=== PATIENT | female | born 1965 ===

== ENCOUNTER 2020-09-21 13:27 | Emergency (ER) | payer SELFPAY ==
--- NOTE | 2020-09-21 14:14 | Event Note ---
ED Screening Note Date of service: 09/21/20 Time: 14:13 ED Screening Note: 54-year-old female patient with history of diabetes and hypertension presents emergency department with complaints of right upper quadrant abdominal pain for approximately 3 weeks, worsening today. She has also been out of her insulin for the last few weeks and ran out of her blood pressure medicine last night. No fever. No vomiting or diarrhea. No urinary symptoms. General: Awake, appropriately interactive, no acute distress. Neck: Supple. Full range of motion intact. Cardiovascular: Normal peripheral perfusion. Pulmonary: No respiratory distress. Patient is speaking normally without use of accessory muscles. Abdomen: Right upper quadrant tenderness without focal guarding, rebound, or rigidity. Skin: No apparent rashes or lesions. Neurological: No facial asymmetry. Speech is clear. Follows commands. Patient is alert and oriented. Musculoskeletal: Moves all four extremities spontaneously with normal range of motion. Psych: Cooperative. Appropriate mood and affect. I have greeted and performed a focused rapid initial assessment of this patient. A comprehensive ED assessment and evaluation of the patient, analysis of all test results, and completion of the medical decision-making process will be conducted by additional ED providers. This initial assessment/diagnostic orders/clinical plan/treatment(s) is/are subject to change based on patients health status, clinical progression and re-assessment. Further treatment and workup at subsequent clinical provider's discretion. Patient/guardian urged not to elope from the ED as their condition may be serious if not clinically assessed and managed.
[2020-09-21 14:18] VITALS: BP 143/79
[2020-09-21 14:34] LABS: Basophils # (Auto) 0.1 K/mm3 (0.0-0.1); Basophils % (Auto) 0.9 % (0.0-1.8); Eosinophils # (Auto) 0.3 K/mm3 (0.0-0.4); Eosinophils % (Auto) 3.4 % (0.0-4.3); Hematocrit 38.6 % (30.3-42.9); Hemoglobin 12.8 gm/dl (10.1-14.3); Lymphocytes # (Auto) 2.6 K/mm3 (1.2-5.4); Lymphocytes % (Auto) 26.3 % (13.4-35.0); Mean Corpuscular HGB Conc 33 % (30-34); Mean Corpuscular Volume 85 fl (79-97); Monocytes # (Auto) 0.9 K/mm3 (0.0-0.8); Platelet Count 393 K/mm3 (140-440); Red Blood Count 4.56 M/mm3 (3.65-5.03)
[2020-09-21 14:53] LABS: Alanine Aminotransferase 8 units/L (7-56); Albumin 3.9 g/dL (3.9-5); BUN/Creatinine Ratio 20; Blood Urea Nitrogen 14 mg/dL (7-17); Calcium 9.6 mg/dL (8.4-10.2); Hemolysis Index 3
--- NOTE | 2020-09-21 14:57 | XRay Report ---
CHEST 2 VIEWS INDICATION / CLINICAL INFORMATION: SOB. COMPARISON: None available. FINDINGS: SUPPORT DEVICES: None. HEART / MEDIASTINUM: No significant abnormality. LUNGS / PLEURA: No significant pulmonary or pleural abnormality. No pneumothorax. ADDITIONAL FINDINGS: No significant additional findings. IMPRESSION: 1. No acute findings. Signer Name: Maryan Villanueva MD Signed: 09/21/2020 2:52 PM Workstation Name: [id number]
[2020-09-21 16:21] LABS: Bilirubin,Urine NEG (Negative); Blood,Urine NEG (Negative); Color,Urine Yellow (Yellow); Mucus,Urine FEW /HPF; Protein,Urine <15 mg/dL mg/dL (Negative); Urobilinogen,Urine < 2.0 mg/dL (<2.0)
[2020-09-21] MEDS ORDERED: MORPHINE 4 MG/1 ML INJ IV ONE (16:24)
[2020-09-21] MEDS ORDERED: ONDANSETRON 4 MG/2 ML INJ IV ONE (16:24)
[2020-09-21 16:59] LABS: Blood Urea Nitrogen 13 mg/dL (7-17); Calcium 9.2 mg/dL (8.4-10.2); Hemolysis Index 6
[2020-09-21 17:08] LABS: BUN/Creatinine Ratio 19
--- NOTE | 2020-09-21 17:35 | Emergency Department Report ---
ED Abdominal Pain HPI - General Chief Complaint: Abdominal Pain Stated Complaint: STOMACH PAIN/NO INSULIN/HIGH BP Time Seen by Provider: 09/21/20 16:14 Source: patient Mode of arrival: Ambulatory Limitations: No Limitations - History of Present Illness Initial Comments: This is a 54-year-old female nontoxic, well nourished in appearance, no acute signs of distress presents to the ED with c/o of right upper abdominal pain 3 weeks. Stated has radiation to right flank. Patient denies any n/v. Patient describes abdominal pain as cramping and aching with level of 8/10. Patient denies chest pain, short of breath, fever, hemoptysis, blood in stool, chills, headache, stiff neck, numbness or tingling. Patient denies any diarrhea or constipation. Denies any blood in stool. Patient denies any recent travels. Patient denies any drug allergies. MD Complaint: abdominal pain -: week(s) Location: RUQ Radiation: R flank Migration to: no migration Severity: mild Severity scale (0 -10): 8 Quality: cramping, aching Consistency: constant Improves With: nothing Worsens With: nothing Associated Symptoms: denies other symptoms. denies: nausea, vomiting, diarrhea, fever, chills, constipation, dysuria, hematemesis, hematochezia, melena, hematuria, anorexia, syncope - Related Data Previous Rx's Medication Instructions Recorded Last Taken Type Naproxen 500 mg PO Q12H PRN #12 tablet 09/21/20 Unknown Rx cephALEXin [Keflex] 500 mg PO Q8HR #21 cap 09/21/20 Unknown Rx Allergies Allergy/AdvReac Type Severity Reaction Status Date / Time No Known Allergies Allergy Unverified 09/21/20 14:12 ED Review of Systems ROS: Stated complaint: STOMACH PAIN/NO INSULIN/HIGH BP Other details as noted in HPI Constitutional: denies: chills, fever Eyes: denies: eye pain, eye discharge, vision change ENT: denies: ear pain, throat pain Respiratory: denies: cough, shortness of breath, wheezing Cardiovascular: denies: chest pain, palpitations Endocrine: no symptoms reported Gastrointestinal: abdominal pain. denies: nausea, vomiting, diarrhea, constipation, hematemesis, melena, hematochezia Genitourinary: denies: urgency, dysuria, discharge Musculoskeletal: denies: back pain, joint swelling, arthralgia Skin: denies: rash, lesions Neurological: denies: headache, weakness, paresthesias Psychiatric: denies: anxiety, depression Hematological/Lymphatic: denies: easy bleeding, easy bruising ED Past Medical Hx - Past Medical History Hx Hypertension: Yes Hx Diabetes: Yes - Surgical History Additional Surgical History: C SECTION/ TUBAL LIG - Social History Smoking Status: Never Smoker Substance Use Type: None - Medications Home Medications: Home Medications Medication Instructions Recorded Confirmed Last Taken Type Naproxen 500 mg PO Q12H PRN #12 tablet 09/21/20 Unknown Rx cephALEXin [Keflex] 500 mg PO Q8HR #21 cap 09/21/20 Unknown Rx ED Physical Exam - General Limitations: No Limitations General appearance: alert, in no apparent distress - Head Head exam: Present: atraumatic, normocephalic - Eye Eye exam: Present: normal appearance - Neck Neck exam: Present: normal inspection, full ROM. Absent: tenderness, meningismus, lymphadenopathy - Respiratory Respiratory exam: Present: normal lung sounds bilaterally. Absent: respiratory distress, wheezes, rales, rhonchi, stridor, chest wall tenderness, accessory muscle use, decreased breath sounds, prolonged expiratory - Cardiovascular Cardiovascular Exam: Present: regular rate, normal rhythm, normal heart sounds. Absent: bradycardia, tachycardia, irregular rhythm, systolic murmur, diastolic murmur, rubs, gallop - GI/Abdominal GI/Abdominal exam: Present: soft, tenderness (RUQ), normal bowel sounds. Absent: distended, guarding, rebound, rigid, diminished bowel sounds - Extremities Exam Extremities exam: Present: normal inspection, full ROM - Back Exam Back exam: Present: normal inspection, full ROM. Absent: tenderness, CVA tenderness (R), CVA tenderness (L), muscle spasm, paraspinal tenderness, vertebral tenderness, rash noted - Neurological Exam Neurological exam: Present: alert, oriented X3, normal gait - Psychiatric Psychiatric exam: Present: normal affect, normal mood - Skin Skin exam: Present: warm, dry, intact, normal color. Absent: rash ED Course Vital Signs 09/21/20 09/21/20 14:11 17:24 Temperature 98.6 F Pulse Rate 84 Respiratory 18 18 Rate Blood Pressure 143/79 O2 Sat by Pulse 99 Oximetry - Reevaluation(s) Reevaluation #1: 09/21/20 17:45 Patient is speaking in full sentences with no signs of distress noted. - Consultations Consultation #1: 09/21/20 18:04 Patient has been consulted with Dr. Cornejo about patient history, physical exam, and labs/US reprort and agrees to ED plan of care and discharge plan of care. ED Medical Decision Making - Lab Data Result diagrams: 09/21/20 14:15 09/21/20 16:21 Lab Results 09/21/20 09/21/20 09/21/20 Range/Units 14:15 14:15 15:41 WBC 10.1 (4.5-11.0) K/mm3 RBC 4.56 (3.65-5.03) M/mm3 Hgb 12.8 (10.1-14.3) gm/dl Hct 38.6 (30.3-42.9) % MCV 85 (79-97) fl MCH 28 (28-32) pg MCHC 33 (30-34) % RDW 15.0 (13.2-15.2) % Plt Count 393 (140-440) K/mm3 Lymph % (Auto) 26.3 (13.4-35.0) % Garrett % (Auto) 9.0 H (0.0-7.3) % Eos % (Auto) 3.4 (0.0-4.3) % Baso % (Auto) 0.9 (0.0-1.8) % Lymph # (Auto) 2.6 (1.2-5.4) K/mm3 Garrett # (Auto) 0.9 H (0.0-0.8) K/mm3 Eos # (Auto) 0.3 (0.0-0.4) K/mm3 Baso # (Auto) 0.1 (0.0-0.1) K/mm3 Seg Neutrophils % 60.4 (40.0-70.0) % Seg Neutrophils # 6.1 (1.8-7.7) K/mm3 Sodium 178 H* (137-145) mmol/L Potassium 3.9 (3.6-5.0) mmol/L Chloride 94.9 L (98-107) mmol/L Carbon Dioxide 28 (22-30) mmol/L Anion Gap 59 mmol/L BUN 14 (7-17) mg/dL Creatinine 0.7 (0.6-1.2) mg/dL Estimated GFR > 60 ml/min BUN/Creatinine Ratio 20 % Glucose 174 H (65-100) mg/dL Calcium 9.6 (8.4-10.2) mg/dL Magnesium 1.90 (1.7-2.3) mg/dL Total Bilirubin 0.40 (0.1-1.2) mg/dL AST 9 (5-40) units/L ALT 8 (7-56) units/L Alkaline Phosphatase 73 (35-129) units/L Troponin T < 0.010 (0.00-0.029) ng/mL Total Protein 7.7 (6.3-8.2) g/dL Albumin 3.9 (3.9-5) g/dL Albumin/Globulin Ratio 1.0 % Lipase 25 (13-60) units/L Urine Color Yellow (Yellow) Urine Turbidity Slightly-cloudy (Clear) Urine pH 5.0 (5.0-7.0) Ur Specific [place] 1.020 (1.003-1.030) Urine Protein <15 mg/dl (Negative) mg/dL Urine Glucose (UA) Neg (Negative) mg/dL Urine Ketones Neg (Negative) mg/dL Urine Blood Neg (Negative) Urine Nitrite Neg (Negative) Urine Bilirubin Neg (Negative) Urine Urobilinogen < 2.0 (<2.0) mg/dL Ur Leukocyte Esterase Lg (Negative) Urine WBC (Auto) 26.0 H (0.0-6.0) /HPF Urine RBC (Auto) 2.0 (0.0-6.0) /HPF U Epithel Cells (Auto) 10.0 (0-13.0) /HPF Urine Mucus Few /HPF 09/21/20 Range/Units 16:21 WBC (4.5-11.0) K/mm3 RBC (3.65-5.03) M/mm3 Hgb (10.1-14.3) gm/dl Hct (30.3-42.9) % MCV (79-97) fl MCH (28-32) pg MCHC (30-34) % RDW (13.2-15.2) % Plt Count (140-440) K/mm3 Lymph % (Auto) (13.4-35.0) % Garrett % (Auto) (0.0-7.3) % Eos % (Auto) (0.0-4.3) % Baso % (Auto) (0.0-1.8) % Lymph # (Auto) (1.2-5.4) K/mm3 Garrett # (Auto) (0.0-0.8) K/mm3 Eos # (Auto) (0.0-0.4) K/mm3 Baso # (Auto) (0.0-0.1) K/mm3 Seg Neutrophils % (40.0-70.0) % Seg Neutrophils # (1.8-7.7) K/mm3 Sodium 135 L D (137-145) mmol/L Potassium 3.8 (3.6-5.0) mmol/L Chloride 97.2 L (98-107) mmol/L Carbon Dioxide 29 (22-30) mmol/L Anion Gap 13 mmol/L BUN 13 (7-17) mg/dL Creatinine 0.7 (0.6-1.2) mg/dL Estimated GFR > 60 ml/min BUN/Creatinine Ratio 19 % Glucose 129 H (65-100) mg/dL Calcium 9.2 (8.4-10.2) mg/dL Magnesium (1.7-2.3) mg/dL Total Bilirubin (0.1-1.2) mg/dL AST (5-40) units/L ALT (7-56) units/L Alkaline Phosphatase (35-129) units/L Troponin T (0.00-0.029) ng/mL Total Protein (6.3-8.2) g/dL Albumin (3.9-5) g/dL Albumin/Globulin Ratio % Lipase (13-60) units/L Urine Color (Yellow) Urine Turbidity (Clear) Urine pH (5.0-7.0) Ur Specific [place] (1.003-1.030) Urine Protein (Negative) mg/dL Urine Glucose (UA) (Negative) mg/dL Urine Ketones (Negative) mg/dL Urine Blood (Negative) Urine Nitrite (Negative) Urine Bilirubin (Negative) Urine Urobilinogen (<2.0) mg/dL Ur Leukocyte Esterase (Negative) Urine WBC (Auto) (0.0-6.0) /HPF Urine RBC (Auto) (0.0-6.0) /HPF U Epithel Cells (Auto) (0-13.0) /HPF Urine Mucus /HPF - Radiology Data ULTRASOUND ABDOMEN, COMPLETE INDICATION / CLINICAL INFORMATION: RUQ pain/tenderness. COMPARISON: None available. FINDINGS: PANCREAS: Pancreatic duct is slightly prominent measuring 5 mm ABDOMINAL AORTA: No significant abnormality. IVC: No significant abnormality. LIVER: No significant abnormality. GALLBLADDER: Gallbladder sludge. No pericholecystic fluid or gallbladder wall thickening BILE DUCTS: No significant abnormality. Common bile duct measures mm. KIDNEYS: Right: No significant abnormality. FREE FLUID: None. ADDITIONAL FINDINGS: None. IMPRESSION: 1. Gallbladder sludge. No gallbladder wall thickening or pericholecystic fluid. 2. Duct is prominent measuring 5 mm. Follow-up ultrasound or CT could be performed. Signer Name: Yasmany Monae MD Signed: 09/21/2020 3:30 PM Workstation Name: [employer] - Medical Decision Making This is a 54-year-old female that presents with sluggish gallbladder with UTI. Patient is stable and was examined by me. m Negative signs of symptoms of appendicitis. Labs obtained. UA obtained. Ultrasound of abdomen obtained and dictated by the radiologist. Patient is notified of the report with no questions noted by the patient. Vital signs are stable prior to discharge. Patient received medical treatment in the ED which patient stated symptoms has resovled and subsided. Was instructed note to operate any machinery due to possible drowsiness and stated someone will drive the patient home. A by mouth challenge has been obtained and patient tolerated well with no nausea vomiting. Patient was notified of strict precatuions of appendictis symptoms and to return to the ED if symptoms occurs as soon as possible. Patient was also instructed to Follow-up with a primary care doctor in 3-5 days or if symptoms worsen and continue return to emergency room as soon as possible. At time of discharge, the patient does not seem toxic or ill in appearance. No acute signs of dist ress noted. Patient agrees to discharge treatment plan of care. No further questions noted by the patient. Critical care attestation.: If time is entered above; I have spent that time in minutes in the direct care of this critically ill patient, excluding procedure time. ED Disposition Clinical Impression: Biliary sludge UTI (urinary tract infection) Qualifiers: Urinary tract infection type: site unspecified Hematuria presence: without hematuria Qualified Code(s): N39.0 - Urinary tract infection, site not specified Disposition: DC- TO HOME OR SELFCARE Is pt being admited?: No Does the pt Need Aspirin: No Condition: Stable Instructions: Abdominal Pain (ED), Urinary Tract Infection, Adult Additional Instructions: Follow-up with a primary care doctor in 3-5 days or if symptoms worsen and continue return to emergency room as soon as possible. Prescriptions: cephALEXin [Keflex] 500 mg PO Q8HR #21 cap Naproxen 500 mg PO Q12H PRN #12 tablet PRN Reason: Pain , Severe (7-10) Referrals: JAMIE LÓPEZ MD [Primary Care Provider] - 3-5 Days PRIMARY CAREMD [Referring] - 3-5 Days PRASHANTH GEORGES MD [Staff Physician] - 3-5 Days Forms: Work/School Release Form(ED) Time of Disposition: 18:08
--- NOTE | 2020-09-22 08:13 | Ultrasound Report ---
ULTRASOUND ABDOMEN, COMPLETE INDICATION / CLINICAL INFORMATION: RUQ pain/tenderness. COMPARISON: None available. FINDINGS: PANCREAS: Pancreatic duct is slightly prominent measuring 5 mm ABDOMINAL AORTA: No significant abnormality. IVC: No significant abnormality. LIVER: No significant abnormality. GALLBLADDER: Gallbladder sludge. No pericholecystic fluid or gallbladder wall thickening BILE DUCTS: No significant abnormality. Common bile duct measures mm. KIDNEYS: Right: No significant abnormality. FREE FLUID: None. ADDITIONAL FINDINGS: None. IMPRESSION: 1. Gallbladder sludge. No gallbladder wall thickening or pericholecystic fluid. 2. Duct is prominent measuring 5 mm. Follow-up ultrasound or CT could be performed. Signer Name: Yasmany Monae MD Signed: 09/21/2020 4:30 PM Workstation Name: [email or web address]
== END 2020-09-21 18:45 | disposition home or self-care (01) ==
LOC: ED 13:27
DX: N39.0 Urinary tract infection, site not specified (principal); K83.8 Other specified diseases of biliary tract; I10 Essential (primary) hypertension; E11.9 Type 2 diabetes mellitus without complications; Z79.899 Other long term (current) drug therapy
CPT/HCPCS: 36415; 71046; 76705; 80048; 80053; 81001; 83690; 83735; 84484; 85025; 87086; 96374; 96375; 99284; J2270; J2405

== ENCOUNTER 2021-05-01 18:43 | Emergency (ER) | payer SELFPAY ==
[2021-05-01 21:39] LABS: Basophils # (Auto) 0.1 K/mm3 (0.0-0.1); Basophils % (Auto) 1.5 % (0.0-1.8); Eosinophils # (Auto) 0.3 K/mm3 (0.0-0.4); Eosinophils % (Auto) 3.3 % (0.0-4.3); Lymphocytes # (Auto) 2.8 K/mm3 (1.2-5.4); Lymphocytes % (Auto) 27.7 % (13.4-35.0); Mean Corpuscular HGB Conc 31 % (30-34); Mean Corpuscular Volume 84 fl (79-97); Monocytes # (Auto) 0.8 K/mm3 (0.0-0.8); Monocytes % (Auto) 7.6 % (0.0-7.3); Platelet Count 394 K/mm3 (140-440); Red Blood Count 5.17 M/mm3 (3.65-5.03)
[2021-05-01 21:42] LABS: Hematocrit 43.5 % (30.3-42.9); Hemoglobin 13.3 gm/dl (10.1-14.3)
--- NOTE | 2021-05-01 21:57 | Cat Scan Report ---
CT head/brain wo con INDICATION / CLINICAL INFORMATION: 55 years Female; headache. TECHNIQUE: Routine CT head without contrast. All CT scans at this location are performed using CT dos e reduction for ALARA by means of automated exposure control. COMPARISON: None. FINDINGS: BRAIN / INTRACRANIAL CONTENTS: No acute hemorrhage, mass effect, midline shift, hydrocephalus, or acu te, large territorial infarct. No signs of significant atrophy or chronic infarct. Minimal, nonspecif ic white matter disease suggested. CRANIOCERVICAL JUNCTION: No significant abnormality. ORBITS: No significant abnormality of visualized orbits. SINUSES / MASTOIDS: Visualized paranasal sinuses and mastoid air cells are essentially clear. ADDITIONAL FINDINGS: None. IMPRESSION: 1. No focal mass, hemorrhage, hydrocephalus, or acute, large territorial infarct. Signer Name: Salvador Wisdom MD, III Signed: 05/01/2021 9:53 PM Workstation Name: [email or web address]
[2021-05-01 21:59] LABS: Alanine Aminotransferase 9 units/L (7-56); Albumin 4.2 g/dL (3.9-5); Blood Urea Nitrogen 13 mg/dL (7-17); Calcium 9.5 mg/dL (8.4-10.2); Hemolysis Index 11
[2021-05-01 22:00] LABS: BUN/Creatinine Ratio 19
--- NOTE | 2021-05-01 23:48 | Emergency Department Report ---
ED General Adult HPI - General Chief complaint: Headache Stated complaint: BELL/VAGINAL INFECTION Time Seen by Provider: 05/01/21 21:03 Source: patient Mode of arrival: Ambulatory Limitations: No Limitations - History of Present Illness Initial comments: 55-year-old -Armenian female with a past medical history of untreated diabetes and hypertension presents emerged department complaining of a 2-or more week history throbbing headache up off and on started in the occipital region and radiated towards the of the frontal with associated with occasional nausea. No nystagmus states she has been totally off of her blood pressure medication unsure of what her blood pressure readings were but did notice an occasional blurred blurred vision and previous syncope with these episodes. She is also been experiencing some pain to the right scapula region which she thinks is by or lipomatous sure there is becoming infected as she reports no fever, chills, sweats. No wound or mass discharge. -: Gradual Radiation: non-radiation Severity scale (0 -10): 8 Quality: aching, dull Consistency: constant Improves with: none Worsens with: none Associated Symptoms: malaise. denies: cough, diaphoresis, nausea/vomiting, shortness of breath, syncope, weakness - Related Data Previous Rx's Medication Instructions Recorded Last Taken Type Naproxen 500 mg PO Q12H PRN #12 tablet 09/21/20 Unknown Rx cephALEXin [Keflex] 500 mg PO Q8HR #21 cap 09/21/20 Unknown Rx Amlodipine Besylate [Norvasc] 5 mg PO DAILY #20 tablet 05/02/21 Unknown Rx Butalb/Acetaminophen/Caffeine 1 cap PO Q8HR PRN #20 cap 05/02/21 Unknown Rx [Fioricet 50-300-40 mg CAP] Fluconazole [Diflucan TAB] 150 mg PO QDAY #3 tablet 05/02/21 Unknown Rx Allergies Allergy/AdvReac Type Severity Reaction Status Date / Time No Known Allergies Allergy Unverified 09/21/20 14:12 ED Review of Systems ROS: Stated complaint: BELL/VAGINAL INFECTION Other details as noted in HPI Comment: All other systems reviewed and negative ED Past Medical Hx - Past Medical History Previous Medical History?: Yes Hx Hypertension: Yes Hx Diabetes: Yes - Surgical History Past Surgical History?: Yes Additional Surgical History: C SECTION/ TUBAL LIG - Social History Smoking Status: Never Smoker Substance Use Type: None - Medications Home Medications: Home Medications Medication Instructions Recorded Confirmed Last Taken Type Naproxen 500 mg PO Q12H PRN #12 tablet 09/21/20 Unknown Rx cephALEXin [Keflex] 500 mg PO Q8HR #21 cap 09/21/20 Unknown Rx Amlodipine Besylate [Norvasc] 5 mg PO DAILY #20 tablet 05/02/21 Unknown Rx Butalb/Acetaminophen/Caffeine 1 cap PO Q8HR PRN #20 cap 05/02/21 Unknown Rx [Fioricet 50-300-40 mg CAP] Fluconazole [Diflucan TAB] 150 mg PO QDAY #3 tablet 05/02/21 Unknown Rx ED Physical Exam - General Limitations: No Limitations General appearance: alert, in no apparent distress - Head Head exam: Present: atraumatic, normocephalic - Eye Eye exam: Present: normal appearance, PERRL, EOMI, other. Absent: nystagmus Pupils: Present: normal accommodation - Expanded Eye Exam Expanded Posterior chamber: Normal Inspection: Bilateral - ENT ENT exam: Present: mucous membranes moist - Neck Neck exam: Present: normal inspection, tenderness, full ROM. Absent: meningismus, lymphadenopathy, thyromegaly - Respiratory Respiratory exam: Present: normal lung sounds bilaterally. Absent: respiratory distress, wheezes, rales, rhonchi, accessory muscle use, decreased breath sounds - Cardiovascular Cardiovascular Exam: Present: regular rate, normal rhythm. Absent: systolic murmur, diastolic murmur, rubs, gallop - GI/Abdominal GI/Abdominal exam: Present: soft, normal bowel sounds - Extremities Exam Extremities exam: Present: normal inspection, full ROM, normal capillary refill - Back Exam Back exam: Present: normal inspection. Absent: CVA tenderness (R), CVA tenderness (L) - Neurological Exam Neurological exam: Present: alert, oriented X3, CN II-XII intact, normal gait - Psychiatric Psychiatric exam: Present: normal affect, normal mood - Skin Skin exam: Present: warm, dry, intact, normal color. Absent: rash ED Course Vital Signs 05/01/21 05/02/21 19:35 00:31 Temperature 98.1 F 98.2 F Pulse Rate 85 78 Respiratory 18 18 Rate Blood Pressure 199/106 179/88 [Right] O2 Sat by Pulse 99 100 Oximetry ED Medical Decision Making - Lab Data Result diagrams: 05/01/21 21:19 05/01/21 21:19 Lab Results 05/01/21 05/01/21 Range/Units 21:19 21:19 WBC 10.2 (4.5-11.0) K/mm3 RBC 5.17 H (3.65-5.03) M/mm3 Hgb 13.3 (10.1-14.3) gm/dl Hct 43.5 H (30.3-42.9) % MCV 84 (79-97) fl MCH 26 L (28-32) pg MCHC 31 (30-34) % RDW 15.0 (13.2-15.2) % Plt Count 394 (140-440) K/mm3 Lymph % (Auto) 27.7 (13.4-35.0) % [place] % (Auto) 7.6 H (0.0-7.3) % Eos % (Auto) 3.3 (0.0-4.3) % Baso % (Auto) 1.5 (0.0-1.8) % Lymph # (Auto) 2.8 (1.2-5.4) K/mm3 [place] # (Auto) 0.8 (0.0-0.8) K/mm3 Eos # (Auto) 0.3 (0.0-0.4) K/mm3 Baso # (Auto) 0.1 (0.0-0.1) K/mm3 Seg Neutrophils % 59.9 (40.0-70.0) % Seg Neutrophils # 6.1 (1.8-7.7) K/mm3 Sodium 136 L (137-145) mmol/L Potassium 4.9 (3.6-5.0) mmol/L Chloride 99.1 (98-107) mmol/L Carbon Dioxide 27 (22-30) mmol/L Anion Gap 15 mmol/L BUN 13 (7-17) mg/dL Creatinine 0.7 (0.6-1.2) mg/dL Estimated GFR > 60 ml/min BUN/Creatinine Ratio 19 % Glucose 281 H (65-100) mg/dL Calcium 9.5 (8.4-10.2) mg/dL Total Bilirubin 0.40 (0.1-1.2) mg/dL AST 11 (5-40) units/L ALT 9 (7-56) units/L Alkaline Phosphatase 102 (35-129) units/L Total Protein 7.7 (6.3-8.2) g/dL Albumin 4.2 (3.9-5) g/dL Albumin/Globulin Ratio 1.2 % - Radiology Data Radiology results: report reviewed [facility] [address] [place] [address] Cat Scan Report Signed Patient: YANELY BRICEÑO MR #: [id number] : 1965 Acct:[id number] Age/Sex: 55 / F ADM Date: 05/01/21 Loc: ED Attending Dr: Ordering Physician: SHAUNA FRANK Date of Service: 05/01/21 Procedure(s): CT head/brain wo con Accession Number(s): [id number] cc: SHAUNA FRANK CT head/brain wo con INDICATION / CLINICAL INFORMATION: 55 years Female; headache. TECHNIQUE: Routine CT head without contrast. All CT scans at this location are performed using CT dose reduction for ALARA by means of automated exposure control. COMPARISON: None. FINDINGS: BRAIN / INTRACRANIAL CONTENTS: No acute hemorrhage, mass effect, midline shift, hydrocephalus, or acute, large territorial infarct. No signs of significant atrophy or chronic infarct. Minimal, nonspecific white matter disease suggested. CRANIOCERVICAL JUNCTION: No significant abnormality. ORBITS: No significant abnormality of visualized orbits. SINUSES / MASTOIDS: Visualized paranasal sinuses and mastoid air cells are essentially clear. ADDITIONAL FINDINGS: None. IMPRESSION: 1. No focal mass, hemorrhage, hydrocephalus, or acute, large territorial infarct. Signer Name: Salvador Wisdom MD, III Signed: 05/01/2021 9:53 PM Workstation Name: [id number] Transcribed By: HR Dictated By: Salvador Wisdom MD Electronically Authenticated By: Salvador Wisdom MD Signed Date/Time: 05/01/212152 DD/ 48 TD/TT: - Medical Decision Making Problem 1 headache This patient presents with a headache most consistent with migraine. Differential diagnosis includes migraine versus tension type headache. No headache red flags. Neurologic exam without evidence of meningismus, focal neurologic findings.Based on the patient's history and physical there is very low clinical suspicion for significant intracranial pathology. The headache was NOT sudden onset, NOT maximal at onset, there are NO neurologic findings, the patient does NOT have a fever, the patient does NOT have any jaw claudication, the patient does NOT endorse a clotting disorder, patient DENIES any trauma or eye pain and the headache is NOT associated with dizziness or ataxia. Presentation not consistent with acute intracranial bleed to include SAH (lack of risk factors, headache history). 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 Presentation not consistent with other acute, emergent causes of headache at this time. Plan to treat symptomatically with pain medication. No indication for imaging/LP at this time. CT the head negative Plan: pain medication, , serial reassessment . Critical care attestation.: If time is entered above; I have spent that time in minutes in the direct care of this critically ill patient, excluding procedure time. ED Disposition Clinical Impression: HTN (hypertension), Cephalgia, Vaginitis Disposition: 01 HOME / SELF CARE / HOMELESS Is pt being admited?: No Does the pt Need Aspirin: No Condition: Stable Instructions: Vaginitis, [id number], Hypertension During , [id number], Hypertension, Adult, [id number], Preventing Hypertension, Managing Your Hypertension, Vaginitis, Hypertension (ED) Additional Instructions: CT scan of the head was normal showing no acute pathology. Please restart taking blood pressure medications as you hypertension could be the cause of your headache we should obtain a primary care provider to further manage your female health needs as medication has been provided to you for the vaginitis headache and your hypertension. Also follow-up with an [employer] Prescriptions: Fluconazole [Diflucan TAB] 150 mg PO QDAY #3 tablet Butalb/Acetaminophen/Caffeine [Fioricet 50-300-40 mg CAP] 1 cap PO Q8HR PRN #20 cap PRN Reason: Headache Amlodipine Besylate [Norvasc] 5 mg PO DAILY #20 tablet Referrals: [facility] [Provider Group] - 3-5 Days PRIMARY CARE, [Primary Care Provider] - 3-5 Days
[2021-05-02 00:37] LABS: Bilirubin,Urine NEG (Negative); Blood,Urine NEG (Negative); Color,Urine Yellow (Yellow); Protein,Urine <15 mg/dL mg/dL (Negative); Urobilinogen,Urine < 2.0 mg/dL (<2.0)
[2021-05-02 04:07] VITALS: BP 170/77
== END 2021-05-02 04:06 | disposition home or self-care (01) ==
LOC: ED 18:43
DX: I10 Essential (primary) hypertension (principal); R51.9 Headache, unspecified; N76.0 Acute vaginitis; E11.9 Type 2 diabetes mellitus without complications
CPT/HCPCS: 36415; 70450; 80053; 81001; 85025; 99284